=== PATIENT | female | born 1950 | race African-American/Black ===

== ENCOUNTER → 2017-07-05 | Outpatient (CLI) | payer MEDICARE, OTHER ==
[~2017-07-05] MED LIST: AMLO-512 PO; ASPI81TA2 PO; ATOR40TA28 PO; CARV25TA77 PO; CHL25 PO; CLON.1 PO; HYDR25TA84 PO; LISI-662 PO; LORA1TAB3 PO; LOSA100T29 PO; METF500T4 PO; METO-323 PO; METO5TAB95 PO; PROM6.25 PO; SITA50 PO
[2017-07-05 16:34] LABS: BASOPHILS % (AUTO) 0.6 % (0.0-2.0); EOSINOPHILS % (AUTO) 4.3 % (1.0-6.0); HEMATOCRIT 36.1 % (36-46); HEMOGLOBIN 12.1 g/dL (12.0-16.0); LYMPHOCYTES # (AUTO) 1.3 K/uL (1.0-4.8); LYMPHOCYTES % (AUTO) 24.4 % (22.0-44.0); MEAN CORPUSCULAR HEMOGLOBIN 27.2 pg (26.0-34.0); MEAN CORPUSCULAR HGB CONC 33.4 G/dL (31.0-37.0); MEAN CORPUSCULAR VOLUME 81 fL (80-100); MONOCYTES # (AUTO) 0.4 K/uL (0.1-1.0); MONOCYTES % (AUTO) 7.9 % (2.0-9.0); NEUTROPHILS # (AUTO) 3.4 K/uL (1.8-7.7); NEUTROPHILS % (AUTO) 62.8 % (40.0-70.0); PLATELET COUNT (AUTO) 235 K/uL (150-450); RED BLOOD CELL COUNT(AUTO) 4.43 MIL/uL (4.00-5.20); RED CELL DISTRIBUTION WIDTH 15.3 % (11.5-14.5); WHITE BLOOD COUNT (AUTO) 5.4 K/uL (4.5-11.0)
[2017-07-05 17:24] LABS: HEMOGLOBIN A1C 6.1 % (4.5-6.2)
[2017-07-05 17:40] LABS: ALBUMIN 3.6 g/dL (3.4-5.0); CREATININE 2.28 mg/dL (0.60-1.30); PHOSPHORUS 4.3 mg/dL (2.5-4.9); POTASSIUM 4.5 mmol/L (3.5-5.1)
[2017-07-06 08:15] LABS: HEPATITIS C AB SCREEN <0.1 s/co ratio (0.0-0.9)
[2017-07-06 09:21] LABS: TRANSFERRIN 250 mg/dL (200-370)
[2017-07-06 12:09] LABS: ALBUMIN (IFE & ELECTROPHOR) 3.6 g/dL (2.9-4.4); ALBUMIN/GLOBULIN RATIO (IFE) 1.3 (0.7-1.7); ALPHA-2 (IFE & PEP) 0.7 g/dL (0.4-1.0); IGG (IMMUNOFIXATION) 1202 mg/dL (700-1600); M-SPIKE (IEP) 0.3 g/dL (Not Observed); TOTAL PROTEIN 6.6 g/dL (6.0-8.5)
[2017-07-06 17:17] LABS: ANTI NUCLEAR AB,DIRECT(SCREEN) Negative (Negative)
== END | disposition home or self-care (01) ==
LOC: LABPV 15:09
PROVIDERS: ATTEND Hospitalist
DX: E11.22 Type 2 diabetes mellitus with diabetic chronic kidney disease (principal); I12.9 Hypertensive chronic kidney disease with stage 1 through stage 4 chronic kidney disease, or unspecified chronic kidney disease; N18.4 Chronic kidney disease, stage 4 (severe); D63.1 Anemia in chronic kidney disease
CPT/HCPCS: 82728; 82784; 83036; 83540; 83550; 84155; 84165; 84466; 86038; 86334; 86803; 87340

== ENCOUNTER → 2017-09-20 | Outpatient (CLI) | payer MEDICARE, OTHER ==
[~2017-09-20] MED LIST changes: -ASPI81TA2 PO; +ASPI81TA39 PO; +CLON-570 PO; -CLON.1 PO; -METO-323 PO; +METO25XL PO
[2017-09-20 16:16] LABS: BASOPHILS # (AUTO) 0.03 K/uL (0.00-0.20); BASOPHILS % (AUTO) 0.6 % (0.0-2.0); EOSINOPHILS # (AUTO) 0.19 K/uL (0.00-0.70); EOSINOPHILS % (AUTO) 3.58 % (1.0-6.0); HEMATOCRIT 38.5 % (36-46); HEMOGLOBIN 12.8 g/dL (12.0-16.0); LYMPHOCYTES # (AUTO) 1.3 K/uL (1.0-4.8); MEAN CORPUSCULAR HEMOGLOBIN 27.6 pg (26.0-34.0); MEAN CORPUSCULAR HGB CONC 33.2 G/dL (31.0-37.0); MEAN CORPUSCULAR VOLUME 83 fL (80-100); MONOCYTES # (AUTO) 0.3 K/uL (0.1-1.0); MONOCYTES % (AUTO) 6.5 % (2.0-9.0); NEUTROPHILS # (AUTO) 3.4 K/uL (1.8-7.7); NEUTROPHILS % (AUTO) 65.3 % (40.0-70.0); PLATELET COUNT (AUTO) 182 K/uL (150-450); RED BLOOD CELL COUNT(AUTO) 4.63 MIL/uL (4.00-5.20); RED CELL DISTRIBUTION WIDTH 14.6 % (11.5-14.5)
[2017-09-20 16:29] LABS: ALBUMIN 3.6 g/dL (3.4-5.0); CREATININE 2.69 mg/dL (0.60-1.30); POTASSIUM 4.5 mmol/L (3.5-5.1)
[2017-09-20 16:30] LABS: % IRON SATURATION 24.7 % (22-44)
[2017-09-20 17:02] LABS: HEMOGLOBIN A1C 6.3 % (4.5-6.2)
[2017-09-22 07:47] LABS: ALPHA-1 (IFE & PEP) 0.2 g/dL (0.0-0.4); GAMMA GLOBULINS (IFE & ELP) 1.1 g/dL (0.4-1.8); IGM (IMMUNOFIXATION) 38 mg/dL (26-217)
== END | disposition home or self-care (01) ==
LOC: LABPV 15:00
PROVIDERS: ATTEND Hospitalist
DX: I12.9 Hypertensive chronic kidney disease with stage 1 through stage 4 chronic kidney disease, or unspecified chronic kidney disease (principal); E11.22 Type 2 diabetes mellitus with diabetic chronic kidney disease; N18.4 Chronic kidney disease, stage 4 (severe); D63.1 Anemia in chronic kidney disease
CPT/HCPCS: 82784; 83036; 83540; 83550; 84155; 84165; 84466; 86038; 86160; 86334